=== PATIENT | female | born 1970 | race Caucasian/White ===

== ENCOUNTER 2016-12-16 00:31 | Emergency (ER) | payer MEDICAID ==
--- NOTE | 2016-12-16 00:40 | Emergency Department Record ---
Anxiety - General Chief Complaint: Anxiety Stated Complaint: ANXIETY ATTACK Time Seen by Provider: 12/16/16 00:36 Source: Patient Mode of Arrival: Ambulatory Limitations: No limitations - History of Present Illness Initial Comments: 46 yo female presents to ED for evaluation of anxiety, reports that it feels as though her "heart is beating out of her chest". Patient reports that she believes that her symptoms are related to anxiety as her mother last night. Patient denies health problems at her baseline other than hypothyroid, has not taken her medication for several months. MD Complaint: Anxiety Symptoms: Palpitations Place: Home Previous History of Same: No Severity: Moderate Quality: Constant Provoking factors: Emotional stress, Recent /illness of family member Improves With: Nothing Worsens With: Nothing Associated symptoms: Denies other symptoms - Related Data Home Medications: Previous Rx's Medication Instructions Recorded Lorazepam [Ativan] 0.5 mg PO Q6H PRN #10 tablet 12/16/16 Allergies/Adverse Reactions: Allergies Allergy/AdvReac Type Severity Reaction Status Date / Time Sulfa (Sulfonamide Allergy Severe VOMITING Unverified 10/31/16 16:17 Antibiotics) Penicillins Allergy Unknown PT UNSURE Unverified 10/31/16 16:17 OF REACTION Review of Systems Constitutional: Denies: Chills, Fever, Malaise, Night sweats Eyes: Denies: Eye discharge, Eye pain ENT: Denies: Congestion, Ear pain, Epistaxis Respiratory: Denies: Cough, Dyspnea Cardiovascular: Reports: Palpitations. Denies: Chest pain, Dyspnea on exertion Endocrine: Denies: Fatigue, Heat or cold intolerance Gastrointestinal: Denies: Abdominal pain, Nausea, Vomiting Genitourinary: Denies: Incontinence, Retention Musculoskeletal: Denies: Arthralgia, Back pain, Gout, Joint swelling Skin: Denies: Bruising, Change in color, Change in hair/nails Neurological: Denies: Abnormal gait, Confusion, Headache, Seizure Psychiatric: Reports: Anxiety. Denies: Auditory hallucinations, Depression Hematological/Lymphatic: Denies: Anemia, Blood Clots Past Medical History - SOCIAL HISTORY Smoking Status: Former smoker Drug Use: None - RESPIRATORY Hx Respiratory Disorders: No Hx Bronchitis: Yes Hx Tuberculosis: No - CARDIOVASCULAR Hx Cardio Disorders: Yes Hx Hypertension: Yes (boarderline) - NEURO Hx Neuro Disorders: No - GI Hx GI Disorders: Yes Hx Abdominal Pain: Yes (07/2014) Hx Nausea/Vomiting: Yes Comment:: cholelithiasis - Hx Genitourinary Disorders: No Hx UTI: Yes - ENDOCRINE Hx Endocrine Disorders: Yes Hx Diabetes: Yes (boarderline) Hx Thyroid Disease: Yes (hypo) - MUSCULOSKELETAL Hx Musculoskeletal Disorders: Yes Hx Back Injury: Yes Comment:: brusitis-right shoulder - PSYCH Hx Psych Problems: No - HEMATOLOGY/ONCOLOGY Hx Hematology/Oncology Disorders: No Family Medical History Hx Cancer: Brother/Sister *Cancer Comment: cervical Hx Diabetes: Father, Brother/Sister Hx Heart Disease: Father Hx HTN: Father Physical Exam - General General Appearance: Alert, Oriented x3, Cooperative, Anxious Limitations: No limitations - Head Head exam: Atraumatic, Normocephalic, Normal inspection Head exam detail: negative: Abrasion, Contusion, Khalil's sign, General tenderness, Hematoma, Laceration - Eye Eye exam: Normal appearance. negative: Conjunctival injection, Periorbital swelling, Periorbital tenderness, Scleral icterus - ENT Ear exam: negative: Auricular hematoma, Auricular trauma Nasal Exam: negative: Active bleeding, Discharge, Dried blood, Foreign body Mouth exam: negative: Drooling, Laceration, Muffled voice, Tongue elevation - Neck Neck exam: Normal inspection. negative: Meningismus, Tenderness - Respiratory Respiratory exam: Normal lung sounds bilaterally. negative: Rales, Respiratory distress, Rhonchi, Stridor - Cardiovascular Cardiovascular Exam: Normal rhythm, Normal heart sounds, Tachycardia - GI/Abdominal GI/Abdominal exam: Soft. negative: Rebound, Rigid, Tenderness - Rectal Rectal exam: Deferred - exam: Deferred - Extremities Extremities exam: Normal inspection. negative: Calf tenderness, Pedal edema, Tenderness - Back Back exam: Denies: CVA tenderness (R), CVA tenderness (L) - Neurological Neurological exam: Alert, Normal gait, Oriented X3 - Psychiatric Psychiatric exam: Normal affect, Normal mood - Skin Skin exam: Normal color. negative: Abrasion Type of lesion: negative: abrasion Course - Reevaluation(s) Reevaluation #1: 12/16/16 00:47 EKG: NSR 96 Normal axis, normal interval Q waves V1, V2, no acute ST-T wave changes present. Reviewed the patient's EKG with her, offered laboratory studies however patient declined at this time. Will dim lights and allow the patient to relax for 20- 30 minutes and reassess her. Patient is driving home, therefore Ativan cannot be given in ED. Reevaluation #2: 12/16/16 01:21 Pulse 91, BP 134/66. Patient reassessed and reports that she is feeling better , offered to observe her longer but she reports that she would like to go home and try and sleep. Will d/c home with Ativan to take when she arrives home. Disposition Disposition: Discharge Clinical Impression: Grief reaction Disposition: Home, Self-Care Condition: (2) Stable Instructions: Grief and Loss (ED) Additional Instructions: Return to ED if your symptoms worsen or if you have any concerns. Ativan as directed. Follow-up with your family doctor in 3-5 days as directed. Prescriptions: Lorazepam [Ativan] 0.5 mg PO Q6H PRN #10 tablet PRN Reason: Anxiety Forms: Patient Portal Access Time of Disposition: 01:25 Quality - Quality Measures Quality Measures: N/A - Blood Pressure Screening Does Patient Have Any of the Following: No Blood Pressure Classification: Hypertensive Reading Systolic Measurement: 167 Diastolic Measurement: 100 Screening for High Blood Pressure: < First Hypertensive BP, F/U Documented > [ G8950] First Hypertensive Follow-up Interventions: Referral to alternative/primary care provider.
[2016-12-16] MEDS: LORAZEPAM 0.5 MG TABLET PO ONE (01:26)
== END 2016-12-16 01:36 | disposition home or self-care (01) ==
LOC: ER 00:31
DX: F43.22 Adjustment disorder with anxiety (principal); R00.0 Tachycardia, unspecified; E03.9 Hypothyroidism, unspecified
CPT/HCPCS: 93005; 93010; 99284

== ENCOUNTER 2017-03-23 19:38 | Emergency (ER) | payer MEDICAID ==
--- NOTE | 2017-03-23 20:15 | Emergency Department Record ---
History of Present Illness - General Chief Complaint: Back Pain/Injury Stated Complaint: LOWER BACK PAIN Time Seen by Provider: 03/23/17 19:42 Source: Patient Mode of Arrival: Ambulatory Limitations: No limitations - History of Present Illness Initial Comments: pt has l flank pain that feels like previous renal abscesses Complaint: Back pain Onset/Timin -: Week(s) Place: Home Severity: Moderate Severity scale (1-10): 4 Quality: Dull Consistency: Intermittent, Getting worse Improves With: None Worsens With: None - Related Data Allergies Allergy/AdvReac Type Severity Reaction Status Date / Time Sulfa (Sulfonamide Allergy Severe VOMITING Unverified 02/23/17 20:11 Antibiotics) Penicillins Allergy Unknown PT UNSURE Unverified 02/23/17 20:11 OF REACTION Travel Screening - Travel/Exposure Within Last 30 Days Have you traveled within the last 30 days?: No Review of Systems Reviewed: No additional complaints except as noted below Constitutional: Reports: As per HPI. Denies: Chills, Fever, Malaise, Night sweats, Weakness, Weight change Eyes: Reports: As per HPI. Denies: Eye discharge, Eye pain, Photophobia, Vision change ENT: Reports: As per HPI. Denies: Congestion, Dental pain, Ear pain, Epistaxis , Hearing loss, Throat pain Respiratory: Reports: As per HPI. Denies: Cough, Dyspnea, Hemoptysis, Stridor, Wheezes Cardiovascular: Reports: As per HPI. Denies: Arrhythmia, Chest pain, Dyspnea on exertion, Edema, Murmurs, Orthopnea, Palpitations, Paroxysmal nocturnal dyspnea, Rheumatic Fever, Syncope Endocrine: Reports: As per HPI. Denies: Fatigue, Heat or cold intolerance, Polydipsia, Polyuria Gastrointestinal: Reports: As per HPI. Denies: Abdominal pain, Constipation, Diarrhea, Hematemesis, Hematochezia, Melena, Nausea, Vomiting Genitourinary: Reports: As per HPI. Denies: Abnormal menses, Discharge, Dyspareunia, Dysuria, Frequency, Hematuria, Incontinence, Retention, Urgency Musculoskeletal: Reports: As per HPI. Denies: Arthralgia, Back pain, Gout, Joint swelling, Myalgia, Neck pain Skin: Reports: As per HPI. Denies: Bruising, Change in color, Change in hair/ nails, Lesions, Pruritus, Rash Neurological: Reports: As per HPI. Denies: Abnormal gait, Confusion, Headache, Numbness, Paresthesias, Seizure, Tingling, Tremors, Vertigo, Weakness Psychiatric: Reports: As per HPI. Denies: Anxiety, Auditory hallucinations, Depression, Homicidal thoughts, Suicidal thoughts, Visual hallucinations Hematological/Lymphatic: Reports: As per HPI. 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) - ENDOCRINE Hx Endocrine Disorders: Yes Hx Diabetes: Yes (boarderline) Hx Thyroid Disease: Yes (hypo) - MUSCULOSKELETAL Hx Musculoskeletal Disorders: Yes Hx Back Injury: Yes Comment:: brusitis-right shoulder - PSYCH Hx Psych Problems: No - HEMATOLOGY/ONCOLOGY Hx Hematology/Oncology Disorders: No Family Medical History Any Significant Family History?: Yes Hx Cancer: Brother/Sister *Cancer Comment: cervical Hx Diabetes: Father, Brother/Sister Hx Heart Disease: Father Hx HTN: Father Physical Exam - General General Appearance: Alert, Oriented x3, Cooperative, Mild distress - Head Head exam: Normal inspection - Eye Eye exam: Normal appearance, PERRL, EOMI Pupils: Normal accommodation - ENT ENT exam: Normal exam, Mucous membranes moist, Normal external ear exam, Normal orophraynx Ear exam: Normal external inspection. negative: External canal tenderness Nasal Exam: Normal inspection. negative: Discharge, Sinus tenderness Mouth exam: Normal external inspection, Tongue normal Teeth exam: Normal inspection. negative: Dental caries Throat exam: Normal inspection. negative: Tonsillar erythema, Tonsillar exudate - Neck Neck exam: Normal inspection, Full ROM. negative: Tenderness - Respiratory Respiratory exam: Normal lung sounds bilaterally. negative: Respiratory distress - Cardiovascular Cardiovascular Exam: Regular rate, Normal rhythm, Normal heart sounds - GI/Abdominal GI/Abdominal exam: Soft, Normal bowel sounds. negative: Tenderness - Rectal Rectal exam: Deferred - exam: Deferred - Extremities Extremities exam: Normal inspection, Full ROM, Normal capillary refill. negative: Tenderness - Back Back exam: Reports: Normal inspection, CVA tenderness (L), Full ROM. Denies: Muscle spasm, Rash noted, Tenderness - Neurological Neurological exam: Alert, CN II-XII intact, Normal gait, Oriented X3 - Psychiatric Psychiatric exam: Normal affect, Normal mood - Skin Skin exam: Dry, Intact, Normal color, Warm Course Vital Signs 03/23/17 19:42 Temperature 98.4 F Pulse Rate 92 H Respiratory 18 Rate Blood Pressure 156/107 Pulse Ox 98 Medical Decision Making - Lab Data Result diagrams: 03/23/17 20:18 03/23/17 20:18 Disposition Disposition: Discharge Clinical Impression: Flank pain, Nausea Disposition: Home, Self-Care Condition: (1) Good Instructions: Flank Pain (ED) Additional Instructions: follow up with family doctor. return sooner if wose. push fluids Forms: Patient Portal Access Quality - Quality Measures Quality Measures: N/A - Blood Pressure Screening Does Patient Have Any of the Following: No Blood Pressure Classification: Hypertensive Reading Systolic Measurement: 156 Diastolic Measurement: 107 Screening for High Blood Pressure: < First Hypertensive BP, F/U Documented > [ G8950] First Hypertensive Follow-up Interventions: Follow-up with rescreen GT 1 day and LT 4 weeks.
[2017-03-23 20:25] LABS: URINE APPEARANCE CLEAR; URINE BILIRUBIN NEGATIVE (NEGATIVE); URINE BLOOD MODERATE (NEGATIVE); URINE COLOR YELLOW; URINE GLUCOSE (UA) NEGATIVE (NEGATIVE); URINE KETONE NEGATIVE (NEGATIVE); URINE LEUKOCYTE ESTERASE NEGATIVE (NEGATIVE); URINE NITRITE NEGATIVE (NEGATIVE); URINE PROTEIN NEGATIVE (NEGATIVE); URINE UROBILINOGEN 0.2 E.U./dL (0.20 - 1.00)
[2017-03-23 20:26] LABS: EOS % 3.2 % (0-6); GRAN % 62.9 % (47-80); HEMATOCRIT 36.8 % (35.0-47.0); HEMOGLOBIN 11.6 gm/dl (11.6-16.0); MEAN CELL VOLUME 75.1 fl (81-97); MEAN CORPUSCULAR HEMOGLOBIN 23.7 pg (27-33); MEAN CORPUSCULAR HGB CONC 31.5 g/dl (32-36); MEAN PLATELET VOLUME 11.3 fl (7.4-10.4); MONO % 6.9 % (0-9); PLATELET COUNT 285 K/uL (130-400); RED CELL DISTRIBUTION WIDTH 16.3 % (11.5-14.5); WHITE BLOOD COUNT W/O DIFF 6.9 K/uL (4.2-12.2)
[2017-03-23 20:28] LABS: URINE EPITHELIAL CELLS 0 - 2 (FEW); URINE WBC 0 - 2 (0-2/hpf)
[2017-03-23 20:40] LABS: BLOOD UREA NITROGEN 10 mg/dL (6-20); CREATININE 0.6 mg/dL (0.5-0.9); EST GLOMERULAR FILTRATION RATE > 60 mL/min; GLUCOSE,RANDOM 130 mg/dL (74-109)
--- NOTE | 2017-03-24 14:45 | CT SCAN REPORT ---
EXAM: CT OF THE ABDOMEN AND PELVIS WITHOUT CONTRAST HISTORY: LEFT FLANK PAIN. TECHNIQUE: Sequential axial images were obtained from the diaphragms through the ischiorectal fossa without intravenous or oral contrast administration. FINDINGS: There are no CT findings suggestive of obstructive uropathy. The nonopacified liver, gallbladder, pancreas and spleen appear normal. The adrenal glands appear normal. The small bowel appears normal. The appendix is visualized and appears normal. The colon appears normal. No evidence of diverticulitis. The uterus and adnexal structures are normal. IMPRESSION: NO ACUTE ABDOMINAL OR PELVIC DISEASE PROCESS. JOB NUMBER: [id number] MTDD
== END 2017-03-23 21:29 | disposition home or self-care (01) ==
LOC: ER 19:38
DX: R10.32 Left lower quadrant pain (principal); M54.5 Low back pain; R11.0 Nausea; I10 Essential (primary) hypertension; E11.9 Type 2 diabetes mellitus without complications; F17.210 Nicotine dependence, cigarettes, uncomplicated
CPT/HCPCS: 74176; 80048; 81001; 85025; 99283; 99284

== ENCOUNTER 2017-04-13 08:02 | Emergency (ER) | payer MEDICAID ==
--- NOTE | 2017-04-13 08:27 | Emergency Department Record ---
History of Present Illness - General Chief complaint: Pain Stated complaint: LEFT SIDE JAW PAIN Time Seen by Provider: 04/13/17 08:12 Source: Patient Mode of Arrival: Ambulatory Limitations: No limitations - History of Present Illness Initial comments: The patient is here due to L jaw pain for 2-3 days. The pain has been mild but then got worse last night. It did improve spontaneously and then this AM became much worse with chewing her breakfast. The pain is located just under the angle of the L mandible. She denies any ST, cough, fever, nasal drainage, swelling, ANY chest pain, SOB or sweating. MD Complaint: Other Onset/Timin -: Days(s) Location: Left, Other History of Same: No Radiation: Proximal Severity scale (1-10): 7 Quality: Aching Consistency: Constant Improves with: Nothing Worsens with: Other Associated Symptoms: Denies other symptoms - Related Data Previous Rx's Medication Instructions Recorded Clindamycin HCl [Cleocin HCl] 300 mg PO QID #28 capsule 04/13/17 Allergies Allergy/AdvReac Type Severity Reaction Status Date / Time Sulfa (Sulfonamide Allergy Severe VOMITING Verified 04/13/17 08:10 Antibiotics) Penicillins Allergy Unknown PT UNSURE Verified 04/13/17 08:10 OF REACTION Travel Screening - Travel/Exposure Within Last 30 Days Have you traveled within the last 30 days?: No Review of Systems Constitutional: Denies: Chills, Fever Eyes: Denies: Eye discharge ENT: Denies: Congestion Respiratory: Denies: Cough, Dyspnea Cardiovascular: Denies: Chest pain Past Medical History - SOCIAL HISTORY Smoking Status: Former smoker Alcohol Use: Occasional Drug Use: None - RESPIRATORY Hx Respiratory Disorders: Yes Hx Asthma: Yes Hx Bronchitis: Yes (hx) - CARDIOVASCULAR Hx Cardio Disorders: Yes Hx Hypertension: Yes (boarderline) - NEURO Hx Neuro Disorders: No - GI Hx GI Disorders: Yes Hx Abdominal Pain: Yes (07/2014) Hx Nausea/Vomiting: Yes Comment:: cholelithiasis - Hx Genitourinary Disorders: Yes Hx UTI: Yes Comment:: 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) - ENDOCRINE Hx Endocrine Disorders: Yes Hx Diabetes: Yes (boarderline) Hx Thyroid Disease: Yes (hypo) - MUSCULOSKELETAL Hx Musculoskeletal Disorders: Yes Hx Back Injury: Yes Comment:: brusitis-right shoulder - PSYCH Hx Psych Problems: No - HEMATOLOGY/ONCOLOGY Hx Hematology/Oncology Disorders: No Family Medical History Any Significant Family History?: Yes Hx Cancer: Brother/Sister *Cancer Comment: cervical Hx Diabetes: Father, Brother/Sister Hx Heart Disease: Father Hx HTN: Father Physical Exam - General General Appearance: Alert, Oriented x3, Cooperative, No acute distress - Head Head exam: Atraumatic, Normocephalic, Normal inspection - Eye Eye exam: Normal appearance, PERRL - ENT ENT exam: Mucous membranes moist, Normal external ear exam, Normal orophraynx, TM's normal bilaterally. negative: Normal exam (The pain is 100% reproducible with palpation to the area just inferior to the L TMJ joint. There is no swelling, bruising, erythema or warmth present. There is mild L inferior parotid gland tenderness.), Mucous membranes dry Ear exam: Normal external inspection. negative: External canal tenderness Mouth exam: Normal external inspection, Tongue normal. negative: Muffled voice , Tongue elevation Teeth exam: Normal inspection. negative: Dental caries, Dental tenderness # Throat exam: Normal inspection. negative: Tonsillar erythema, Tonsillomegaly, Tonsillar exudate, R peritonsillar mass, L peritonsillar mass Course Vital Signs 04/13/17 08:07 Temperature 98.6 F Pulse Rate 90 Respiratory 20 Rate Blood Pressure 193/100 Pulse Ox 96 - Reevaluation(s) Reevaluation #1: I did discuss the need for pain medicine, warm compresses and an oral Abx with the patient due to the parotid gland inflammation. She is to see her PCP early next week if not better. 04/13/17 09:02 Medical Decision Making - Data Complexity MDM Data: EKG Ordered and/or Reviewed - EKG Data -: EKG Interpreted by Me EKG: No Acute Changes, Unchanged From Previous Disposition Disposition: Discharge Clinical Impression: Facial pain, acute Disposition: Home, Self-Care Condition: (2) Stable Instructions: Atypical Facial Pain (ED) Additional Instructions: Please take the Clindamycin and Naprosyn as directed. Please take the [place] for pain and then add Tylenol if needed. Follow up with your family doctor early next week for recheck of the facial pain and also to recheck your blood pressure and return to the ER for any worsening symptoms. Prescriptions: Clindamycin HCl [Cleocin HCl] 300 mg PO QID #28 capsule Forms: Patient Portal Access Time of Disposition: 09:05 Quality - Quality Measures Quality Measures: N/A - Blood Pressure Screening View Details: Yes Does Patient Have Any of the Following: No Blood Pressure Classification: Hypertensive Reading Systolic Measurement: 193 Diastolic Measurement: 100 Screening for High Blood Pressure: < First Hypertensive BP, F/U Documented > [ G8950] First Hypertensive Follow-up Interventions: Referral to alternative/primary care provider.
[2017-04-13] MEDS ORDERED: CLINDAMYCIN 150 MG CAP PO ONE (08:28)
[2017-04-13] MEDS ORDERED: KETOROLAC 30 MG/ML VIAL IM ONE (08:30)
[2017-04-13] MEDS ORDERED: HYDROCODONE/APAP 5/325MG TABLET PO ONE (09:05)
== END 2017-04-13 09:36 | disposition home or self-care (01) ==
LOC: ER 08:02
DX: G50.1 Atypical facial pain (principal); R68.84 Jaw pain; R03.0 Elevated blood-pressure reading, without diagnosis of hypertension; Z87.891 Personal history of nicotine dependence
CPT/HCPCS: 99284 ×2; 96372; 93005; 93010; J1885

== ENCOUNTER 2017-04-23 05:16 | Emergency (ER) | payer MEDICAID ==
[2017-04-23] MEDS ORDERED: CEPHALEXIN 500 MG CAPSULE PO STA (05:36)
--- NOTE | 2017-04-23 05:37 | Emergency Department Record ---
History of Present Illness - General Chief Complaint: Recheck - Other Stated Complaint: RECHECK Time Seen by Provider: 04/23/17 05:21 Source: Patient Mode of arrival: Ambulatory Limitations: No limitations - History of Present Illness Initial Comments: The patient is here due to developing L jaw pain for one day. She previously had the pain a week ago and was seen in the ER and treated with Clindamycin for presumed parotitis even though her physical exam was fairly normal. Since the pain did resolve only to restart today. She did see her Dentist and was told her teeth were normal. The patient has been taking Naprosyn for pain and feels it is working but would like another Abx. She denies any ST, cough, voice changes, ear pain or drainage. MD Complaint: Other Onset/Timin -: Days(s) Initial Visit For: Other Returns Today for: Other Symptoms Since Prior Visit: Worsening pain Associated Symptoms: None - Related Data Previous Rx's Medication Instructions Recorded Cephalexin [Keflex] 500 mg PO QID #40 cap 04/23/17 Allergies Allergy/AdvReac Type Severity Reaction Status Date / Time Sulfa (Sulfonamide Allergy Severe VOMITING Verified 04/13/17 08:10 Antibiotics) Penicillins Allergy Unknown PT UNSURE Verified 04/13/17 08:10 OF REACTION Travel Screening - Travel/Exposure Within Last 30 Days Have you traveled within the last 30 days?: No Review of Systems Constitutional: Denies: Chills, Fever Eyes: Denies: Eye discharge ENT: Denies: Congestion, Dental pain, Throat pain Respiratory: Denies: Cough, Dyspnea Past Medical History - SOCIAL HISTORY Smoking Status: Former smoker Alcohol Use: None Drug Use: None - RESPIRATORY Hx Respiratory Disorders: Yes Hx Asthma: Yes Hx Bronchitis: Yes (hx) - CARDIOVASCULAR Hx Cardio Disorders: Yes Hx Hypertension: Yes (boarderline) - NEURO Hx Neuro Disorders: No - GI Hx GI Disorders: Yes Hx Abdominal Pain: Yes (07/2014) Hx Nausea/Vomiting: Yes Comment:: cholelithiasis - Hx Genitourinary Disorders: Yes Hx UTI: Yes Comment:: 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) - ENDOCRINE Hx Endocrine Disorders: Yes Hx Diabetes: Yes (boarderline) Hx Thyroid Disease: Yes (hypo) - MUSCULOSKELETAL Hx Musculoskeletal Disorders: Yes Hx Back Injury: Yes Comment:: brusitis-right shoulder - PSYCH Hx Psych Problems: No - HEMATOLOGY/ONCOLOGY Hx Hematology/Oncology Disorders: No Family Medical History Any Significant Family History?: Yes Hx Cancer: Brother/Sister *Cancer Comment: cervical Hx Diabetes: Father, Brother/Sister Hx Heart Disease: Father Hx HTN: Father Physical Exam - General General Appearance: Alert, Oriented x3, Cooperative, No acute distress - Head Head exam: Atraumatic, Normocephalic, Normal inspection - Eye Eye exam: Normal appearance, PERRL - ENT ENT exam: Normal exam, Mucous membranes moist, Normal external ear exam, Normal orophraynx, TM's normal bilaterally Ear exam: Normal external inspection. negative: External canal tenderness Mouth exam: Normal external inspection, Tongue normal Throat exam: Normal inspection, Other (The patient is able to open her mouth fully with no difficulty. There is mild tenderness to the L TMJ but she states that is not the same pain.). negative: Tonsillar erythema, Tonsillomegaly, Tonsillar exudate, R peritonsillar mass, L peritonsillar mass - Neck Neck exam: Normal inspection, Full ROM, Tenderness (There is tenderness just inferior to the angle of the mandible on the L side. Palpation there exactly reproduces the pain. There is no swelling, bruising, erythema or warmth appreciated.). negative: Lymphadenopathy, Meningismus - Respiratory Respiratory exam: Normal lung sounds bilaterally. negative: Respiratory distress - Cardiovascular Cardiovascular Exam: Regular rate, Normal rhythm, Normal heart sounds Course Vital Signs 04/23/17 05:22 Temperature 97.6 F Pulse Rate [ 82 Pulse Ox Probe] Respiratory 24 Rate Blood Pressure 154/95 [Left Arm] Pulse Ox 98 - Reevaluation(s) Reevaluation #1: I did explain to the patient that the pain does seem to be very reproducible to palpation just inferior to the angle of the L mandible. There are lymph nodes present there but they do not feel different from the R side although they are clearly tender and palpation there does reproduce the pain. The patient is to stay on the Keflex and see her PCP in 2 days as planned. I do feel the Keflex is safe due to the fact the patient is not sure what her PCN allergy is and she has had Rocephin in the past with no problems. 04/23/17 05:47 04/23/17 05:53 Disposition Disposition: Discharge Clinical Impression: Facial pain, acute Disposition: Home, Self-Care Condition: (2) Stable Instructions: Atypical Facial Pain (ED) Additional Instructions: Please use warm compresses to the L jaw as directed and continue the Keflex and Naprosyn as directed. Please see your family doctor for recheck in 2 days as planned and return to the ER for any increased pain, swelling, fever, redness or bruising. Prescriptions: Cephalexin [Keflex] 500 mg PO QID #40 cap Forms: Patient Portal Access Time of Disposition: 05:52 Quality - Quality Measures Quality Measures: N/A - Blood Pressure Screening View Details: Yes Does Patient Have Any of the Following: No Blood Pressure Classification: Hypertensive Reading Systolic Measurement: 154 Diastolic Measurement: 95 Screening for High Blood Pressure: < First Hypertensive BP, F/U Documented > [ G8950] First Hypertensive Follow-up Interventions: Referral to alternative/primary care provider.
== END 2017-04-23 06:00 | disposition home or self-care (01) ==
LOC: ER 05:16
DX: G50.1 Atypical facial pain (principal); I10 Essential (primary) hypertension; E11.9 Type 2 diabetes mellitus without complications; Z87.891 Personal history of nicotine dependence
CPT/HCPCS: 99282

== ENCOUNTER 2018-09-03 18:48 | Emergency (ER) | payer MEDICAID ==
--- NOTE | 2018-09-03 19:26 | Emergency Department Record ---
History of Present Illness - General Chief complaint: Fatigue and Weakness Stated complaint: WEAKNESS Time Seen by Provider: 09/03/18 19:20 Source: Patient Mode of Arrival: Ambulatory Limitations: No limitations - History of Present Illness Initial comments: 48 yo female presents with feeling weak today. She reports that yesterday she had about one minute of palpitations that made her feel dizzy. No chest pain. No syncope. No shortness of breath. The symptoms resolved but she still feels weak today. No known history of CAD. No headache, vision changes, cough, short of breath, chest pain, abdominal pain. She has had intermittent diarrhea over the last 5 months. No blood in the diarrhea. MD Complaint: Generalized weakness -: Minutes(s) Location: Generalized Severity: Mild Quality: Other Consistency: Intermittent, Now resolved Improves with: None Worsens with: None Context: Other Associated Symptoms: Denies other symptoms - [place]ques Coma Scale Eye Response: (4) Open spontaneously Motor Response: (6) Obeys commands Verbal Response: (5) Oriented [place] Total: 15 - Related Data Allergies Allergy/AdvReac Type Severity Reaction Status Date / Time Sulfa (Sulfonamide Allergy Severe VOMITING Verified 09/03/18 19:22 Antibiotics) Penicillins Allergy Unknown PT UNSURE Verified 09/03/18 19:22 OF REACTION Review of Systems Constitutional: Reports: Weakness. Denies: Chills, Fever, Malaise Eyes: Denies: Eye discharge, Eye pain, Photophobia, Vision change ENT: Denies: Congestion, Dental pain, Ear pain, Epistaxis, Hearing loss, Throat pain Respiratory: Denies: Cough, Dyspnea, Hemoptysis, Stridor, Wheezes Cardiovascular: Reports: As per HPI, Arrhythmia, Palpitations. Denies: Chest pain, Dyspnea on exertion, Edema, Murmurs, Paroxysmal nocturnal dyspnea, Rheumatic Fever, Syncope Endocrine: Reports: Fatigue. Denies: Polydipsia, Polyuria Gastrointestinal: Reports: Nausea. Denies: Abdominal pain, Diarrhea, Vomiting Genitourinary: Denies: Dysuria, Frequency Musculoskeletal: Denies: Arthralgia, Back pain, Myalgia Skin: Denies: Bruising, Change in color, Rash Neurological: Denies: Abnormal gait, Confusion, Headache, Numbness, Paresthesias, Tingling, Tremors, Vertigo, Weakness Psychiatric: Denies: Anxiety Hematological/Lymphatic: Denies: Anemia, Blood Clots, Easy bleeding, Easy bruising, Swollen glands Past Medical History - SOCIAL HISTORY Smoking Status: Former smoker Drug Use: None - RESPIRATORY Hx Respiratory Disorders: Yes Hx Asthma: Yes Hx Bronchitis: Yes (hx) - CARDIOVASCULAR Hx Cardio Disorders: Yes Hx Hypertension: Yes (boarderline) - NEURO Hx Neuro Disorders: No - GI Hx GI Disorders: Yes Hx Abdominal Pain: Yes (07/2014) Hx Nausea/Vomiting: Yes Comment:: cholelithiasis - Hx Genitourinary Disorders: Yes Hx UTI: Yes Comment:: 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) - ENDOCRINE Hx Endocrine Disorders: Yes Hx Diabetes: Yes (boarderline) Hx Thyroid Disease: Yes (hypo) - MUSCULOSKELETAL Hx Musculoskeletal Disorders: Yes Hx Back Injury: Yes Comment:: brusitis-right shoulder - PSYCH Hx Psych Problems: No - HEMATOLOGY/ONCOLOGY Hx Hematology/Oncology Disorders: No Family Medical History Hx Cancer: Brother/Sister *Cancer Comment: cervical Hx Diabetes: Father, Brother/Sister Hx Heart Disease: Father Hx HTN: Father Physical Exam - General General Appearance: Alert, Oriented x3, Cooperative, No acute distress Limitations: No limitations - Head Head exam: Atraumatic, Normal inspection - Eye Eye exam: Normal appearance, PERRL. negative: Conjunctival injection, Scleral icterus - ENT ENT exam: Normal exam, Mucous membranes moist Ear exam: Normal external inspection Nasal Exam: Normal inspection Mouth exam: Normal external inspection Teeth exam: Normal inspection Throat exam: Normal inspection - Neck Neck exam: Normal inspection, Full ROM. negative: Lymphadenopathy, Meningismus, Tenderness, Thyromegaly - Respiratory Respiratory exam: Normal lung sounds bilaterally. negative: Accessory muscle use, Chest wall tenderness, Prolonged expiratory, Respiratory distress, Wheezes - Cardiovascular Cardiovascular Exam: Regular rate, Normal rhythm, Normal heart sounds. negative: Bradycardia, Diastolic murmur, Irregular rhythm, Systolic murmur, Tachycardia Peripheral Pulses: 2+: Radial (R), Radial (L) - GI/Abdominal GI/Abdominal exam: Soft. negative: Tenderness - Rectal Rectal exam: Deferred - exam: Deferred - Extremities Extremities exam: Normal inspection. negative: Pedal edema, Tenderness - Back Back exam: Denies: CVA tenderness (R), CVA tenderness (L) - Neurological Neurological exam: Alert, Oriented X3 - Psychiatric Psychiatric exam: Normal affect, Normal mood - Skin Skin exam: Dry, Intact, Normal color, Warm Course Vital Signs 09/03/18 19:06 Temperature 98.9 F Pulse Rate [ 90 Pulse Ox Probe] Respiratory 18 Rate Blood Pressure 161/92 [Left Arm] Pulse Ox 98 - Reevaluation(s) Reevaluation #1: 09/03/18 19:30 EKG #1: 19:21 Rate: 74 Rhythm: sinus [place]: normal Intervals: normal ST segments: normal Prior: 04/13/18 no changes on the EKG 09/03/18 20:07 The labs results were reviewed There are no acute significant abnormalities of the CBC There are no acute significant abnormalities of the CMP 09/03/18 20:12 She has remained asymptomatic in the ED Given her palpitations she will be referred to the cardiology clinic at [facility] No history of chest pain. No indication for aspirin. Medical Decision Making - Lab Data Result diagrams: 09/03/18 19:40 09/03/18 19:40 Disposition Disposition: Discharge Clinical Impression: Palpitations Disposition: Home, Self-Care Condition: (1) Good Instructions: Heart Palpitations (ED) Additional Instructions: Call your doctor for the next available follow up appointment Review this ER visit and the tests performed with your family doctor Return to the ER for a recheck if worse, any new concerns or questions Take the prescriptions provided as directed Referrals: Ranjeet Palma M.D. [MEDICAL DOCTOR] - [facility] Specialty Clinics [Provider Group] Forms: Patient Portal Access Time of Disposition: 20:09 Quality - Quality Measures Quality Measures: N/A - Blood Pressure Screening Does Patient Have Any of the Following: Active Dx of HTN Blood Pressure Classification: Hypertensive Reading Systolic Measurement: 166 Diastolic Measurement: 95 Screening for High Blood Pressure: Patient Exclusion, Hx of HTN [[id number]]
[2018-09-03 19:51] LABS: ABSOLUTE NEUTROPHIL COUNT 6.43; BASO % 0.6 % (0-6); EOS % 1.3 % (0-6); GRAN % 68.8 % (47-80); HEMOGLOBIN 14.6 gm/dl (11.6-16.0); LYMPH % 20.9 % (16-45); MEAN CELL VOLUME 82.9 fl (81-97); MEAN CORPUSCULAR HEMOGLOBIN 26.8 pg (27-33); MEAN CORPUSCULAR HGB CONC 32.4 g/dl (32-36); MEAN PLATELET VOLUME 9.9 fl (7.4-10.4); MONO % 8.4 % (0-9); PLATELET COUNT 351 K/uL (130-400); RED BLOOD COUNT 5.43 M/uL (3.80-5.40); RED CELL DISTRIBUTION WIDTH 14.2 % (11.5-14.5); WHITE BLOOD COUNT W/O DIFF 9.4 K/uL (4.2-12.2)
[2018-09-03 19:55] LABS: BLOOD UREA NITROGEN 9 mg/dL (6-20)
[2018-09-03 19:56] LABS: CREATININE 0.7 mg/dL (0.5-0.9); EST GLOMERULAR FILTRATION RATE > 60 mL/min; TOTAL PROTEIN 7.1 g/dL (6.6-8.7)
[2018-09-03 19:58] LABS: GLUCOSE,RANDOM 136 mg/dL (74-109)
[2018-09-03 20:01] LABS: ALB/GLOB RATIO 1.7 (1.1-1.8); ALBUMIN 4.5 g/dL (4.0-5.0); ALKALINE PHOSPHATASE 85 U/L (35-104); ALT/SGPT 15 U/L (<33); AST/SGOT 15 U/L (10.0-35.0)
[2018-09-03 20:11] LABS: THYROID STIMULATING HORMONE 3.98 uIU/mL (0.270-4.20)
== END 2018-09-03 20:45 | disposition home or self-care (01) ==
LOC: ER 18:48
DX: R00.2 Palpitations (principal); E03.9 Hypothyroidism, unspecified; R03.0 Elevated blood-pressure reading, without diagnosis of hypertension; R73.03 Prediabetes
CPT/HCPCS: 80053; 84443; 84484; 85025; 93005; 93010; 99284